=== PATIENT | male | born 1990 | race Caucasian/White ===

== ENCOUNTER 2016-07-07 02:22 | Emergency (ER) | payer OTHER ==
[2016-07-07 02:36] VITALS: O2SAT 94
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
[2016-07-07 04:23] VITALS: BP 131/98; PULSE 85; RESP 14; TEMP 97.9
== END 2016-07-07 04:24 | disposition home or self-care (01) ==
LOC: EDUNIT#
PROC: 0HQ1XZZ Repair Face Skin, External Approach (ICD-10-PCS; principal; 2016-07-07)
DX: S02.2XXA Fracture of nasal bones, initial encounter for closed fracture (principal); S01.81XA Laceration without foreign body of other part of head, initial encounter; F10.129 Alcohol abuse with intoxication, unspecified; F17.200 Nicotine dependence, unspecified, uncomplicated; Y09 Assault by unspecified means